=== PATIENT | female | born 1960 | race Caucasian/White ===

== ENCOUNTER 2016-09-08 13:19 | Emergency (ER) | payer OTHER ==
--- NOTE | 2016-09-08 14:49 | DIAGNOSTIC IMAGING REPORT ---
PROCEDURE: CT HEAD WITHOUT CONTRAST INDICATION: HEADACHE TECHNIQUE: Noncontrast axial images with sagittal and coronal reformations. COMPARISON: None. FINDINGS: Brain and ventricles are normal. No evidence of an acute process or hemorrhage. There is moderate mucosal thickening in the left maxillary sinus with fluid level, and marked mucosal thickening in the left anterior ethmoid air cells and left frontal sinus. There is mild mucosal thickening in the right sphenoid sinus, with mild mucosal thickening and fluid in the right maxillary sinus. IMPRESSION: 1. Normal brain and ventricles. 2. Moderate to severe mucosal thickening in the left maxillary sinus, left frontal sinus, and left anterior ethmoid sinuses (suggest obstruction of the ostiomeatal unit). 3. Mild mucosal thickening in the right sphenoid and maxillary sinus with fluid level. 4. Findings are compatible with acute and chronic sinusitis. 5. Findings discussed with Dr. Celestino Alcocer at [address] scans at this facility use dose modulation, iterative reconstruction, and/or weight-based dosing when appropriate to reduce radiation dose to as low as reasonably achievable.
--- NOTE | 2016-09-08 15:19 | ED ORDER SUMMARY ---
..... Patient: SUZY MELENDEZ OrderSheet [facility] VisitID: [id number] [address] [place] [address] 55y, F Registration Date/Time: 09/08/2016 ORDER SHEET Weight: 74.8 kg (stated) Allergies: No Known Drug Allergy GENERAL ORDERS: CT Head wo Cont (double vision) Urgent (14:12 09/08/2016 Juanjo Ca) [facility] 14:[facility] (14:28 [place]) MEDICATION ORDERS: IV FLUIDS: ORDER SHEET NOTES: [Electronically signed by Celestino Alcocer Dr. (15:19 09/08/2016)] [Electronically signed by Jg Camara R.N. (18:03 09/08/2016)] [Electronically locked/signed by Jg Camara R.N. (18:03 09/08/2016)]
--- NOTE | 2016-09-08 15:19 | ED CLINICAL REPORT ---
Clinical Report - Physicians/Mid Levels [facility] [address] [place] [address] 09/08/2016 13:20 Patient: SUZY MELENDEZ Time Seen: 13:29; initial patient contact. Arrived- By private vehicle. Historian- patient. HISTORY OF PRESENT ILLNESS Chief Complaint: HEADACHE. Is still present. This started about 1 1/2 weeks ago. Onset during emotional upset. It is described as sharp. Quality described as unlike previous headaches. Located in the right hemicranial and occipital region and region of the right eye. No neck pain. Not located in the facial region. At its maximum, severity described as moderate. When seen in the E.D., severity described as mild. No preceding symptoms, blurred vision, photophobia, associated nausea or numbness. No weakness or vomiting. Similar symptoms previously: None. Recent medical care: The patient was seen recently in a clinic (Dx'd w/ sinus infection. On Cefuroxime and was on Mobic, but switched to Prednisone yesterday.). REVIEW OF SYSTEMS No fever, ear pain or carbon monoxide exposure. She has had sinus pressure. All systems otherwise negative, except as recorded above. PAST HISTORY Cellulitis. DIC Syndrome. Depression SURGERIES: Cryosurgery of cervix Esophageal surgery. Laparoscopy. Scar tissue removal from fallopian tubes. SOCIAL HISTORY Former smoker. Occasional alcohol use. No drug use. ADDITIONAL NOTES The nursing notes have been reviewed. PHYSICAL EXAM Vital Signs: 09/08/2016 13:23 BP: 138/87. HR: 78. RR: 16. O2 saturation: 98%. Temp: 98.1 F. Pain level now: 3/10. Have been reviewed as normal. Appearance: Alert. No acute distress. Eyes: Pupils equal, round and reactive to light. Eyes normal inspection. No photophobia. ENT: Mild generalized pharyngeal erythema with right tonsillar swelling and left tonsillar swelling. No right tonsillar exudate or left tonsillar exudate. Neck: Normal inspection. No meningeal signs, carotid bruit or lymphadenopathy. CVS: Normal heart rate and rhythm. Heart sounds normal. Respiratory: No respiratory distress. Breath sounds normal. Abdomen: Soft and nontender. No organomegaly. The bowel sounds are not abnormal. Skin: Skin warm and dry. Normal skin color. Neuro: Oriented X 3. Alert. Mood/affect normal. Speech normal. Cranial nerves normal (as tested). No cerebellar findings. No motor deficit. No sensory deficit. Reflex exam: right biceps 2+, left biceps 2+, right brachioradialis 2+ and left brachioradialis 2+. LABS, X-RAYS, AND EKG CT Head: (1. Normal brain and ventricles. 2. Moderate to severe mucosal thickening in the left maxillary sinus, left frontal sinus, and left anterior ethmoid sinuses (suggest obstruction of the ostiomeatal unit). 3. Mild mucosal thickening in the right sphenoid and maxillary sinus with fluid level. 4. Findings are compatible with acute and chronic sinusitis.). Head CT performed without contrast. The study was independently viewed by me, interpreted by the radiologist and discussed with the radiologist. Prior studies were not available for comparison. Interpretation time: 14:57. PROGRESS AND PROCEDURES Disposition: Discharged home in good and improved condition. Condition: good. CLINICAL IMPRESSION Episodic tension-type headache resistant to treatment. Chronic maxillary, ethmoidal and frontal sinusitis INSTRUCTIONS Do not work tomorrow. (Use distilled water only in your Neti pot Afrin OTC nose spray x 2 days). Your Current Medications: CONTINUE TAKING THE FOLLOWING MEDICATIONS: Benadryl prn *. Multivitamins Oral. Venlafaxine HCl ER Oral. Vitamin D Oral. Prescription Medications: Baclofen 10 mg: take 1 orally every 8 hours. Dispense thirty (30). No refills. Follow-up: Follow up with your doctor in about two days. Call for an appointment. Screening today revealed the patient's blood pressure to be in the hypertensive range. The patient should follow up with a primary care provider for blood pressure management. Follow-up with: Tasih Alaniz MD, ENT, , [address], , [place], [id number] Follow up in about two days. Call for an appointment. (Electronically signed by Celestino Alcocer Dr. 09/08/2016 15:19)
--- NOTE | 2016-09-08 15:19 | ED CLINICAL REPORT ---
Clinical Report - Physicians/Mid Levels [facility] [address] [place] [address] 09/08/2016 13:20 Patient: SUZY MELENDEZ Time Seen: 13:29; initial patient contact. Arrived- By private vehicle. Historian- patient. HISTORY OF PRESENT ILLNESS Chief Complaint: HEADACHE. Is still present. This started about 1 1/2 weeks ago. Onset during emotional upset. It is described as sharp. Quality described as unlike previous headaches. Located in the right hemicranial and occipital region and region of the right eye. No neck pain. Not located in the facial region. At its maximum, severity described as moderate. When seen in the E.D., severity described as mild. No preceding symptoms, blurred vision, photophobia, associated nausea or numbness. No weakness or vomiting. Similar symptoms previously: None. Recent medical care: The patient was seen recently in a clinic (Dx'd w/ sinus infection. On Cefuroxime and was on Mobic, but switched to Prednisone yesterday.). REVIEW OF SYSTEMS No fever, ear pain or carbon monoxide exposure. She has had sinus pressure. All systems otherwise negative, except as recorded above. PAST HISTORY Cellulitis. DIC Syndrome. Depression SURGERIES: Cryosurgery of cervix Esophageal surgery. Laparoscopy. Scar tissue removal from fallopian tubes. SOCIAL HISTORY Former smoker. Occasional alcohol use. No drug use. ADDITIONAL NOTES The nursing notes have been reviewed. PHYSICAL EXAM Vital Signs: 09/08/2016 13:23 BP: 138/87. HR: 78. RR: 16. O2 saturation: 98%. Temp: 98.1 F. Pain level now: 3/10. Have been reviewed as normal. Appearance: Alert. No acute distress. Eyes: Pupils equal, round and reactive to light. Eyes normal inspection. No photophobia. ENT: Mild generalized pharyngeal erythema with right tonsillar swelling and left tonsillar swelling. No right tonsillar exudate or left tonsillar exudate. Neck: Normal inspection. No meningeal signs, carotid bruit or lymphadenopathy. CVS: Normal heart rate and rhythm. Heart sounds normal. Respiratory: No respiratory distress. Breath sounds normal. Abdomen: Soft and nontender. No organomegaly. The bowel sounds are not abnormal. Skin: Skin warm and dry. Normal skin color. Neuro: Oriented X 3. Alert. Mood/affect normal. Speech normal. Cranial nerves normal (as tested). No cerebellar findings. No motor deficit. No sensory deficit. Reflex exam: right biceps 2+, left biceps 2+, right brachioradialis 2+ and left brachioradialis 2+. LABS, X-RAYS, AND EKG CT Head: (1. Normal brain and ventricles. 2. Moderate to severe mucosal thickening in the left maxillary sinus, left frontal sinus, and left anterior ethmoid sinuses (suggest obstruction of the ostiomeatal unit). 3. Mild mucosal thickening in the right sphenoid and maxillary sinus with fluid level. 4. Findings are compatible with acute and chronic sinusitis.). Head CT performed without contrast. The study was independently viewed by me, interpreted by the radiologist and discussed with the radiologist. Prior studies were not available for comparison. Interpretation time: 14:57. PROGRESS AND PROCEDURES Disposition: Discharged home in good and improved condition. Condition: good. CLINICAL IMPRESSION Episodic tension-type headache resistant to treatment. Chronic maxillary, ethmoidal and frontal sinusitis INSTRUCTIONS Do not work tomorrow. (Use distilled water only in your Neti pot Afrin OTC nose spray x 2 days). Your Current Medications: CONTINUE TAKING THE FOLLOWING MEDICATIONS: Benadryl prn *. Multivitamins Oral. Venlafaxine HCl ER Oral. Vitamin D Oral. Prescription Medications: Baclofen 10 mg: take 1 orally every 8 hours. Dispense thirty (30). No refills. Follow-up: Follow up with your doctor in about two days. Call for an appointment. Screening today revealed the patient's blood pressure to be in the hypertensive range. The patient should follow up with a primary care provider for blood pressure management. Follow-up with: Tashi Alaniz MD, ENT, , [address], , [place], [id number] Follow up in about two days. Call for an appointment. (Electronically signed by Celestino Alcocer Dr. 09/08/2016 15:19)
--- NOTE | 2016-09-08 15:19 | ED NURSING NOTES ---
Clinical Report - Nurses [facility] [address] [place] [address] 09/08/2016 13:20 Patient: SUZY MELENDEZ TRIAGE Triage time 13:Sep 08 2016. Acuity: LEVEL 4. Alert. No acute distress. SEPSIS SCREEN: Sepsis Screen. Negative (no infection suspected/documented). --13:34 Jg Camara R.N. 13:23 09/08/16. BP: 138/87. HR: 78. RR: 16. O2 saturation: 98% on room air. Temp: 98.1 F. Pain level now: 06/28. --13:34 Jg Camara R.N. Chief Complaint: HEADACHE and (double vision). --15:31 Jg Camara R.N. Weight: 74.8 kg stated. Height/Length: 64 inches Per Patient. BMI: 28.3. --13:23 Jg Camara R.N. Medications Venlafaxine HCl ER Oral. --13:28 Jg Camara R.N. Multivitamins Oral. --13:28 Jg Camara R.N. Vitamin D Oral. --13:28 Jg Camara R.N. Benadryl prn . --13:28 Jg Camara R.N. Allergies No Known Drug Allergy. --13:27 Jg Camara R.N. History Arrived by private vehicle. Historian: patient. Accompanied by family. This started last night. ( Pt has had a sinus headache for roughly 1-2 weeks, she experienced some stabbing pains to the right side of her head. She went in to the clinic and was given some "swelling medicine" and the stabbing pains were relieved. The stabbing pains returned last night, she was awoken by this pain and is reporting double-vision.). She has had sinus pain. No nausea or fever. Treatment [employer]IST: (Excedrin ES). SOCIAL HX: Former smoker. Occasional alcohol use. No drug use. No recent travel. No infectious disease exposure. No known contact with a sick individual. ABUSE ASSESSMENT: Abuse assessment: The patient was asked "Do you feel safe in your home?". No report of abuse. SELF HARM ASSESSMENT: A self harm assessment was performed. The patient answered "yes" to the question "Have you recently felt down, depressed, or hopeless?", "Do you have thoughts of harming or killing yourself?" and "Have you recently had thoughts about harming or killing others?" and "no" to the question "Are you here because you tried to hurt yourself?", "Have you ever tried to hurt yourself before today?" and "Do you have any dangerous items in your possession?". The patient reports their behavior. The ED physician has been notified. FALL RISK ASSESSMENT: Fall risk assessment completed. No fall risk identified. NUTRITIONAL RISK ASSESSMENT: The nutritional risk assessment revealed no deficiencies. FUNCTIONAL ASSESSMENT: Functional assessment: no impairments noted. LEARNING NEEDS ASSESSMENT: The learning needs assessment revealed no barriers. SKIN INTEGRITY ASSESSMENT: Skin integrity risk assessment completed. No skin integrity risk identified. --13:34 Jg Camara R.N. SELF HARM ASSESSMENT: A self harm assessment was performed. Family at bedside. --13:43 Jg Camara R.N. PROBLEMS: Cellulitis. DIC Syndrome. --13:28 Jg Camara R.N. ADDITIONAL SURGERIES: Cryosurgery of cervic. Esophageal surgery. Laparoscopy. Scar tissue removal from fallopian tubes. --13:29 Jg Camara R.N. Interventions ID band on patient. To treatment room. --13:34 Jg Camara R.N. PHYSICAL ASSESSMENT Ambulatory to room. GENERAL / NEURO / PSYCH: Alert. Oriented X 4. Appears in no acute distress. Speech within normal limits. HEENT: Visual acuity with corrective lenses: left eye 20/25; right eye 20/25 (Pt is nearsighted, could not visualize exam board without glasses.). Pupils equal, round and reactive to light. RESPIRATORY: Respirations not labored. SKIN: Skin is warm and dry. --13:40 Jg Camara R.N. NURSING PROGRESS NOTES The plan of care for this patient has been created. Patient gowned. Head of bed elevated. Reassurance given. Lights dimmed. Two patient identifiers checked. Call light placed in reach. Bed placed in lowest position. Patient ready for evaluation- ED physician notified. ( Pt tearful during triage exam when asked if she has recently felt down/depressed, she states that she has thought about hurting herself on and off for the past few years. She reports familial stress and sadness in her life, states that she has thought about how she would hurt herself, by taking pills but reports that she doesn't have any and that she would never actually "do that". Spouse at bedside. Pt cooperative, pleasant, ED MD aware.). --13:42 Jg Camara R.N. ( Pt resting in room, spouse at bedside, Pt already gone to CT, no needs voiced.). --14:50 Jg Camara R.N. 14:50 09/08/16. BP: 141/90. HR: 67. O2 saturation: 97% on room air. Pain level now: 610. --14:50 Jg Camara R.N. DISPOSITION / DISCHARGE Departure time: 15:Sep 08 2016. Condition at departure: stable. No learning barriers present. Discharge instructions provided and reviewed with the patient and spouse. Reviewed warnings (Pt advised not to drive or consume ETOH while taking Baclofen.). Reviewed medication(s) side effects, precautions, dosing and course information. Prescription(s) given to the patient. Reviewed referral to a primary care physician for followup. Work note given (Do not work tomorrow.). Patient and spouse verbalized understanding. Written instructions provided in [place]. The patient was discharged home and accompanied by spouse. She left the Emergency Department ambulatory and via private vehicle. Spouse driving. ( Pt dc'd in stable condition, VSS, ambulatory, Pt reports she feels better, verbalized understanding of DC instructions.). --15:30 Jg Camara R.N. 15:30 09/08/16. BP: deferred. HR: deferred. RR: deferred. O2 saturation: deferred. Temp: deferred. Pain level now deferred. --15:30 Jg Camara R.N. Locked/Released at 09/08/2016 18:03 by Jg Camara R.N.
--- NOTE | 2016-09-08 15:19 | ED ORDER SUMMARY ---
..... Patient: SUZY MELENDEZ OrderSheet [facility] VisitID: [id number] [address] [place] [address] 55y, F Registration Date/Time: 09/08/2016 ORDER SHEET Weight: 74.8 kg (stated) Allergies: No Known Drug Allergy GENERAL ORDERS: CT Head wo Cont (double vision) Urgent (14:12 09/08/2016 Juanjo Ca) ([facility] 14:18 [facility] (14:28 [place]) MEDICATION ORDERS: IV FLUIDS: ORDER SHEET NOTES: [Electronically signed by Celestino Alcocer Dr. (15:19 09/08/2016)] [Electronically signed by Jg Camara R.N. (18:03 09/08/2016)] [Electronically locked/signed by Jg Camara R.N. (18:03 09/08/2016)]
--- NOTE | 2016-09-08 18:03 | ED MED RECONCILIATION SUMMARY ---
Patient: SUZY MELENDEZ Medication Reconciliation Report [facility] VisitID: [id number] [address] [place] [address] 55y, F Registration Date/Time: 09/08/2016 Weight: 74.8 kg Height/Length: 64 in. BMI: 28.3 ALLERGIES: No Known Drug Allergy The patient's Home Medications are listed below: CONTINUE TAKING THE FOLLOWING MEDICATIONS: Benadryl prn Multivitamins Oral Venlafaxine HCl ER Oral Vitamin D Oral The source(s) of the original Home Medication information: Not obtained. The following Medications were given to the patient in the Emergency Department: None. The following Medications were prescribed to the patient: Baclofen 10 mg: take 1 orally every 8 hours. Dispense thirty (30). No refills. -- Celestino Alcocer Dr.
--- NOTE | 2016-09-08 18:03 | ED MED RECONCILIATION SUMMARY ---
Patient: SUZY MELENDEZ Medication Reconciliation Report [facility] VisitID: [id number] [address] [place] [address] 55y, F Registration Date/Time: 09/08/2016 Weight: 74.8 kg Height/Length: 64 in. BMI: 28.3 ALLERGIES: No Known Drug Allergy The patient's Home Medications are listed below: CONTINUE TAKING THE FOLLOWING MEDICATIONS: Benadryl prn Multivitamins Oral Venlafaxine HCl ER Oral Vitamin D Oral The source(s) of the original Home Medication information: Not obtained. The following Medications were given to the patient in the Emergency Department: None. The following Medications were prescribed to the patient: Baclofen 10 mg: take 1 orally every 8 hours. Dispense thirty (30). No refills. -- Celestino Alcocer Dr.
--- NOTE | 2016-09-08 18:03 | ED MAR SUMMARY ---
..... Medication Administration Record [facility] [address], [place] [id number] Patient: SUZY MELENDEZ Visit ID: [id number] 55y, F Weight: 74.8 kg Height/Length: 64 in BMI: 28.3 ALLERGIES: No Known Drug Allergy
--- NOTE | 2016-09-08 18:03 | ED DISCHARGE INSTRUCTIONS ---
Patient: SUZY MELENDEZ General Instructions [facility] VisitID: [id number] [address] [place] [address] 55y, F Registration Date/Time: 09/08/2016 Episodic tension-type headache resistant to treatment. Chronic maxillary, ethmoidal and frontal sinusitis INSTRUCTIONS Do not work tomorrow. (Use distilled water only in your Neti pot Afrin OTC nose spray x 2 days). Your Current Medications: CONTINUE TAKING THE FOLLOWING MEDICATIONS: Benadryl prn *. Multivitamins Oral. Venlafaxine HCl ER Oral. Vitamin D Oral. Prescription Medications: Baclofen 10 mg: take 1 orally every 8 hours. Dispense thirty (30). No refills. Follow-up: Follow up with your doctor in about two days. Call for an appointment. Screening today revealed the patient's blood pressure to be in the hypertensive range. The patient should follow up with a primary care provider for blood pressure management. Follow-up with: Tashi Alaniz MD, ENT, , [address] , [place], [id number] Follow up in about two days. Call for an appointment. ADDITIONAL INFORMATION Tension Headache Muscle Tension Headache (also called "stress headache") is a very common cause of head pain. Under stress, some people tense the muscles of their shoulder, neck and scalp without knowing it. If this lasts long enough, a headache can occur. These headaches can be very painful and last for hours or even days. Home Care: If you were given pain medicine for this headache, do not drive yourself home. Arrange for a ride, instead. When you get home, try to sleep. You should feel much better when you wake up. Heat to the back of your neck may relieve neck spasm. Drink only clear liquids or eat a very light diet to avoid nausea/vomiting until symptoms improve. Preventing Future Headaches Identify the sources of stress in your life. These may not be obvious! Learn new ways to handle your stress, such as regular exercise, biofeedback, self-hypnosis and meditation. For more information about this, consult your doctor or go to a local bookstore and review the many books and tapes on this subject. At the first sign of a tension headache, take time out if possible. Remove yourself from the stressful situation, find a quiet comfortable place to sit or lie down and let yourself relax. Heat and deep massage of the tight areas in the neck and shoulders may help reduce muscle spasm. Medicine, such as ibuprofen (Advil or Motrin) or a prescribed muscle relaxant may be helpful at this point. Follow Up with your doctor if the headache is not better within the next 24 hours. If you have frequent headaches you should discuss a treatment plan with your primary care doctor. Ask if you can have medicine to take at home the next time you get a bad headache. This may avoid the need for a visit to the emergency department in the future. Poorly controlled chronic headaches may require a referral to a neurologist (headache specialist). Get Prompt Medical Attention if any of the following occur: Worsening of your head pain or no improvement within 24 hours Repeated vomiting (unable to keep liquids down) Fever of 100.4F (38C) or higher, or as directed by your healthcare provider Stiff neck Extreme drowsiness, confusion or fainting Dizziness, vertigo (dizziness with spinning sensation) Weakness of an arm or leg or one side of the face Difficulty with speech or vision Sinusitis [Abx Tx] The sinuses are air-filled spaces within the bones of the face. They connect to the inside of the nose. Sinusitis is an inflammation of the tissue lining the sinus cavity. Sinus inflammation can occur during a cold or hay-fever (allergies to pollens and other particles in the air) and cause symptoms of sinus congestion and fullness. A sinus infection causes fever, headache and facial pain. There is usually green or yellow drainage from the nose or into the back of the throat (post-nasal drip). Antibiotics are prescribed to treat this condition. Home Care: Drink plenty of water, hot tea, and other liquids to stay well hydrated. This thins the mucus and promotes sinus drainage. Apply heat to the painful areas of the face. Use a towel soaked in hot water. Or, machine fitter the shower and direct the hot spray onto your face. This is a good way to inhale warm water vapor and get heat on your face at the same time. (Cover your mouth and nose with your hands so you can still breathe as you do this.) Use a vaporizer with products such as [employer] (contains menthol) at night. Suck on peppermint, menthol or eucalyptus hard candies during the day. An expectorant containing guaifenesin (such as Robitussin), helps to thin the mucus and promote drainage from the sinuses. Hxzb-kyz-lkttfhk decongestants may be used unless a similar medicine was prescribed. Nasal sprays work the fastest. Use one that contains phenylephrine (Ezequiel-synephrine, Sinex and others) or oxymetazoline (Afrin). First blow the nose gently to remove mucus, then apply the drops. Do not use these medicines more often than directed on the label or for more than three days or symptoms may worsen. You may also use tablets containing pseudoephedrine (Sudafed). Many sinus remedies combine ingredients, which may increase side effects. Read the labels or ask the pharmacist for help. NOTE: Persons with high blood pressure should not use decongestants. They can raise blood pressure. Antihistamines are useful if allergies are a cause of your sinusitis. The mildest one is chlorpheniramine (available without a prescription). The dose for adults is 8-12mg three times a day. [NOTE: Do not use chlorpheniramine if you have glaucoma or if you are a man with trouble urinating due to an enlarged prostate.] Claritin (loratidine) is an antihistamine that causes less drowsiness and is a good alternative for daytime use. Do not use nasal rinses or irrigation during an acute sinus infection, unless advised by your doctor. Rinsing may spread the infection to other sinuses. You may use acetaminophen (Tylenol) or ibuprofen (Motrin, Advil) to control pain, unless another pain medicine was prescribed. [ NOTE: If you have chronic liver or kidney disease or ever had a stomach ulcer, talk with your doctor before using these medicines.] (Aspirin should never be used in anyone under 18 years of age who is ill with a fever. It may cause severe liver damage.) Finish the full course, even if you are feeling better after a few days. Follow Up with your doctor or this facility in one week or as instructed by our staff if not improving. Get Prompt Medical Attention if any of the following occur: Facial pain or headache becomes more severe Stiff neck Unusual drowsiness or confusion, or not acting like your normal self Swelling of the forehead or eyelids Vision problems including blurred or double vision Fever of 100.4F (38C) or higher, or as directed by your healthcare provider Seizure You have been given the following additional information: Headache, Tension Sinusitis, Abx Tx Do not work tomorrow. (Electronically signed by Celestino Alcocer Dr. 09/08/2016 15:19)
--- NOTE | 2016-09-08 18:03 | ED MAR SUMMARY ---
..... Medication Administration Record [facility] [address] [place], [place] [id number] Patient: SUZY MELENDEZ Visit ID: [id number] 55y, F Weight: 74.8 kg Height/Length: 64 in BMI: 28.3 ALLERGIES: No Known Drug Allergy
== END 2016-09-08 15:30 | disposition home or self-care (01) ==
LOC: ED SRH 13:19
DX: G44.211 Episodic tension-type headache, intractable (principal); J32.0 Chronic maxillary sinusitis; J32.2 Chronic ethmoidal sinusitis; J32.1 Chronic frontal sinusitis; Z87.891 Personal history of nicotine dependence; Z79.899 Other long term (current) drug therapy

== ENCOUNTER 2016-09-09 13:00 | Emergency (ER) | payer OTHER ==
--- NOTE | 2016-09-09 15:44 | ED NURSING NOTES ---
Clinical Report - Nurses [facility] [address] [place] [address] 09/09/2016 13:00 Patient: SUZY MELENDEZ TRIAGE Triage time 13:36 Sep 09 2016. Acuity: LEVEL 3. Chief Complaint: HEADACHE. Alert. No acute distress. SEPSIS SCREEN: Sepsis Screen. Negative (no infection suspected/documented). NICOLE COMA SCORE: Nicole Coma Scale: 15- eyes open spontaneously (4); best verbal response- oriented x 4 (5); best motor response- obeys commands (6). --13:44 Bailey Dow R.N. 13:36 09/09/16. BP: 138/101. HR: 75. RR: 16. O2 saturation: 100%. Temp: 98.5 F. Pain level now: 12/29. --13:44 Bailey Dow R.N. Weight: 72.5 kg stated. Height/Length: 64 inches Per Patient. BMI: 27.5. --13:43 Bailey Dow R.N. Medications Venlafaxine HCl Oral. --13:39 Bailey Dow R.N. MethylPREDNISolone Oral. --13:39 Bailey Dow R.N. Nexafed Oral. --13:39 Bailey Dow R.N. Cefuroxime Axetil Oral. --13:40 Bailey Dow R.N. Meloxicam Oral. --13:40 Bailey Dow R.N. Baclofen External. --13:40 Bailey Dow R.N. Motrin PM Oral. --13:40 Bailey Dow R.N. Motrin Oral. --13:40 Bailey Dow R.N. Multivitamins Oral. Vitamin D Oral. --13:41 Bailey Dow R.N. Afrin. --13:44 Bailey Dow R.N. Flonase Nasal. --13:44 Bailey Dow R.N. Allergies No Known Drug Allergy. --13:41 Bailey Dow R.N. History Arrived by private vehicle. Historian: patient. Accompanied by family. This started thusday. She has had nausea and sinus pain. 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 Seen within the last 30 days in a medical facility; CT done; labs done; treatment- antibiotic, steroid and other medication. SOCIAL HX: Smoker- current status unknown. Occasional alcohol use. No drug use. No recent travel. No infectious disease exposure. No known contact with a sick individual. SELF HARM ASSESSMENT: A self harm assessment was performed. The patient answered "no" to the question "Do you have thoughts of harming or killing yourself?". ABUSE ASSESSMENT: Abuse assessment: The patient was asked "Do you feel safe in your home?". --13:44 Bailey Dow R.N. ( pt states that she has headache with some vision changes since . She has been seen at the clinic twice and ER last night since then.). --13:45 Bailey Dow R.N. PROBLEMS: Sinusitis. Tension-Type Headache. Cellulitis. LNMP - Last Normal Menstrual Period. Immunizations. DIC Syndrome. --13:41 Bailey Dow R.N. ADDITIONAL SURGERIES: Cryosurgery of cervic. Esophageal surgery. Laparoscopy. Scar tissue removal from fallopian tubes. --13:41 Bailey Dow R.N. Interventions ID band on patient. To room. --13:44 Bailey Dow R.N. PHYSICAL ASSESSMENT GENERAL / NEURO / PSYCH: Oriented X 4. Appears in pain. Speech within normal limits. HEENT: No facial asymmetry noted. RESPIRATORY: Respirations not labored. CVS: Capillary refill less than 2 seconds. GI / : Abdomen soft and nontender. SKIN: Skin is warm and dry. --13:46 Bailey Dow R.N. NURSING PROGRESS NOTES Patient gowned. Head of bed elevated. Lights dimmed. Patient identifiers checked. Call light placed in reach. Side rails up x 1. Bed placed in lowest position. Brakes of bed on. --13:45 Bailey Dow R.N. 14:24 09/09/2016 Site #1 started via IV in the right antecubital space with an 20g angiocath, with aseptic technique and good blood return; one attempt. Saline lock flushed with 10 mL saline. --14:24 Bailey Dow R.N. 14:25 09/09/2016 Started bag #1 1000 mL IV Fluids IV NS (Saline); bolus of 1000 mL over 1 hour(s) via site #1. Allergies verified and confirmed 5 rights. IV patency established. IV site checked: no pain, redness, or swelling. IV flushed thoroughly pre- and post-medication administration. --14:25 Bailey Dow R.N. 14:25 09/09/2016 Toradol IVP 30 mg given over 2 minute(s) via site #1. Allergies verified and confirmed 5 rights. IV patency established. IV site checked: no pain, redness, or swelling. IV flushed thoroughly pre- and post-medication administration. --14:25 Bailey Dow R.N. 14:27 09/09/2016 PHENERGAN (Promethazine HCl) IVP 25 mg given over 2 minute(s) via site #1. Allergies verified and confirmed 5 rights. IV patency established. IV site checked: no pain, redness, or swelling. IV flushed thoroughly pre- and post-medication administration. IVP given by RN. --14:28 Bailey Dow R.N. 14:29 09/09/2016 Benadryl (DiphenhydrAMINE HCl) IVP 25 mg given over 2 minute(s) via site #1. Allergies verified, confirmed 5 rights and sedative warning given to the patient. IV patency established. IV site checked: no pain, redness, or swelling. IV flushed thoroughly pre- and post-medication administration. IVP given by RN. --14:29 Bailey Dow R.N. 14:36 09/09/2016 Started 10 mg of Decadron IVPB; bolus of 10 mg over 5 minute(s) via site #1; Allergies verified and confirmed 5 rights. IV patency established. IV site checked: no pain, redness, or swelling. IV flushed thoroughly pre- and post-medication administration. --14:36 Bailey Dow R.N. 15:00 09/09/16. BP: 140/95. HR: 84. RR: 16. O2 saturation: 100% on room air. --15:12 Robin Garcia R.N. 15:13 09/09/2016 Benadryl (DiphenhydrAMINE HCl) IVP 25 mg given over 2 minute(s) via site #1. Allergies verified, confirmed 5 rights and sedative warning given. IV patency established. IV site checked: no pain, redness, or swelling. IV flushed thoroughly pre- and post-medication administration. IVP given by RN. --15:13 Guero Mcintyre R.N. 15:36 09/09/16. BP: 127/108. HR: 84. RR: 12. O2 saturation: 99%. Pain level now: 04/30. --15:37 Bailey Dow R.N. The patient is calm and resting quietly. Overall patient status is improved- she states feels better. GENERAL / NEURO / PSYCH: The patient reports headache is still present but improving. Denies nausea. Alert. Oriented X 4. RESPIRATORY: No respiratory distress. SKIN: Skin is warm and dry. --15:38 Bailey Dow R.N. DISPOSITION / DISCHARGE Departure time: 16:19 Sep 09 2016. Condition at departure: unchanged. No learning barriers present. Discharge instructions provided and reviewed with the patient. Reviewed medication(s) side effects, precautions, dosing and course information. Prescription(s) given to the patient. Reviewed referral to a primary care physician for followup. Patient verbalized understanding. Written instructions provided in Serbian. The patient was discharged home and accompanied by spouse. She left the Emergency Department ambulatory and via private vehicle. Spouse driving. FALL RISK ASSESSMENT: Fall risk assessment completed. No fall risk identified. --16:20 Bailey Dow R.N. 16:12 09/09/16. BP: 155/111. HR: 88. RR: 12. O2 saturation: 98%. Pain level now: 04/30. --16:20 Bailey Dow R.N. Locked/Released at 09/09/2016 22:45 by Bailey Dow R.N.
--- NOTE | 2016-09-09 15:44 | ED CLINICAL REPORT ---
Clinical Report - Physicians/Mid Levels [facility] [address] [place] [address] 09/09/2016 13:00 Patient: SUZY MELENDEZ Time Seen: 1401. Arrived- By private vehicle. Historian- patient. HISTORY OF PRESENT ILLNESS Is still present and worsening. Chief Complaint: HEADACHE. This started past few days. It was gradual in onset and has been constant and waxing/waning but is not gone now. Patient was last known well (few days ago). Onset during rest. It is described as sharp. Located in the right hemicranial region. No neck pain. Not located in the facial region. At its maximum, severity described as severe. When seen in the E.D., severity described as severe. Modifying factors: worsened by bright light; relieved by closing eyes and dark room. The patient has had nausea. No blurred vision, photophobia, numbness, weakness or vomiting. No recent travel. Recent medical care: The patient was seen recently in the emergency department (reports sinus infection). REVIEW OF SYSTEMS No fever, sinus pressure, chest pain, difficulty breathing or cough. No abdominal pain, diarrhea or pain with urination. All systems otherwise negative, except as recorded above. PAST HISTORY See nurses notes. Medications: Flonase Nasal. Afrin. Multivitamins Oral. Vitamin D Oral. Motrin Oral. Motrin PM Oral. Baclofen External. Meloxicam Oral. Cefuroxime Axetil Oral. Nexafed Oral. MethylPREDNISolone Oral. Venlafaxine HCl Oral. Allergies: No Known Drug Allergy. SOCIAL HISTORY Never smoker. No alcohol use or drug use. No recent travel. Is a local resident. ADDITIONAL NOTES The nursing notes have been reviewed. PHYSICAL EXAM Vital Signs: 09/09/2016 13:36 BP: 138/101. HR: 75. RR: 16. O2 saturation: 100%. Temp: 98.5 F. Pain level now: 9/10. Oxygen saturation normal. Appearance: Alert. Patient in mild distress. (non-toxic appearance. cooperative. pleasant.). Head: No tenderness to palpation/percussion over the sinuses or temporal artery tenderness. Eyes: Pupils equal, round and reactive to light. Eyes normal inspection. No photophobia. (no papilledema. normal retinal vasculature.). ENT: Ears normal. Nose normal. Pharynx normal. Neck: Normal inspection. Neck supple. No meningeal signs or lymphadenopathy. ( negative Kernigs. Negative brudzinski's). CVS: Normal heart rate and rhythm. Heart sounds normal. Pulses normal. Respiratory: No respiratory distress. Breath sounds normal. Abdomen: Soft and nontender. No organomegaly. Skin: Skin warm and dry. Normal skin color. No rash. Normal skin turgor. Extremities: Extremities exhibit normal ROM. No lower extremity edema. Neuro: Oriented X 3. Alert. Mood/affect normal. Cranial nerves normal (as tested). No cerebellar findings. No motor deficit. No sensory deficit. Reflexes normal. PROGRESS AND PROCEDURES Course of Care: Patient is a pleasant presenting for evaluation of headache. Patient as been evaluated for SAH, increased ICP, meningitis, and space occupying lesion. Patients exam and history are not consistent with these entities. Patient is agreeable to treatment for headache. Medications have been ordered after reviewing allergies and intolerances. Patient will be reevaluated after the medications have been given. Patient was reevaluated and found to be significantly improved. Patient reports being able to return home and follow up with doctor. Repeat examination continues to be benign. I discussed with the patient workup, diagnosis, home care, follow-up, and return precautions. All questions have been answered. The patient expressed understanding of these instructions and was agreeable to them. Do not feel patient needs to be admitted to the hospital or require further ED workup/evaluation. Disposition: Discharged. Condition: good. CLINICAL IMPRESSION Acute headache (right sided). 09/09/2016 15:36 BP: 127/108. HR: 84. RR: 12. O2 saturation: 99%. Pain level now: 04/30. Hypertensive. Oxygen saturation normal. Hypertension. INSTRUCTIONS Warnings: GENERAL WARNINGS: Return or contact your physician immediately if your condition worsens or changes unexpectedly, if not improving as expected, or if other problems arise. SPECIFICALLY, return if you develop fever, vomiting, numbness, weakness, difficulty thinking, visual disturbances, fainting or extreme fatigue. Your Current Medications: CONTINUE TAKING THE FOLLOWING MEDICATIONS: Afrin*. Baclofen External. Cefuroxime Axetil Oral. Flonase Nasal. Meloxicam Oral. MethylPREDNISolone Oral. Motrin Oral. Motrin PM Oral. Multivitamins Oral. Nexafed Oral. Venlafaxine HCl Oral. Vitamin D Oral. Prescription Medications: Zofran (orally disintegrating tablets) 4 mg: take 1 orally. Dispense ten (10). No refill. Substitution is permissible. Follow-up: Return to the emergency department as needed. Follow up with your doctor in three days. Reason for referral: recheck today's concerns. Summary of care provided to patient via paper. Screening today revealed the patient's blood pressure to be in the hypertensive range. The patient should follow up with a primary care provider for blood pressure management. Understanding of the discharge instructions verbalized by patient. (Electronically signed by Kobe Ramos Dr. 09/14/2016 8:07)
--- NOTE | 2016-09-09 15:44 | ED ORDER SUMMARY ---
..... Patient: SUZY MELENDEZ OrderSheet [facility] VisitID: [id number] [address] [place] [address] 55y, F Registration Date/Time: 09/09/2016 ORDER SHEET Weight: 72.5 kg (stated) Allergies: No Known Drug Allergy GENERAL ORDERS: MEDICATION ORDERS: Phenergan IV 25 mg (HIGH ALERT MEDICATION, NOW) (14:09/09/2016 Perez Ca) (14:28 REYNALDOnejeaneth R.N.) IV FLUIDS: IV NS : initial bolus 1000 mL (1000 mL/hr), then none - for X1 (NOW) (14:09/09/2016 Perez Ca) (14:25 REYNALDOnejeaneth R.N.) Benadryl IV 25 mg (NOW) (14:09/09/2016 Perez Ca) (14:29 Matty R.N.) Toradol IV 30 mg (NOW) (14:09/09/2016 Perez Ca) (14:25 REYNALDOnejeaneth R.N.) Decadron IV 10 mg (NOW) (14:09/09/2016 Perez Ca) (14:36 REYNALDOnebel R.N.) Benadryl IV 25 mg (NOW) (15:09 09/09/2016 Perez Ca) (Ack 15:10 JBoardley R.N.) (15:13 JBoardley R.N.) ORDER SHEET NOTES: [Electronically signed by Bailey Dow R.N. (22:45 09/09/2016)] [Electronically signed by Kobe Ramos Dr. (08:07 09/14/2016)] [Electronically locked/signed by Bailey Dow R.N. (22:45 09/09/2016)]
--- NOTE | 2016-09-09 15:44 | ED ORDER SUMMARY ---
..... Patient: SUZY MELENDEZ OrderSheet [facility] VisitID: [id number] [address] [place] [address] 55y, F Registration Date/Time: 09/09/2016 ORDER SHEET Weight: 72.5 kg (stated) Allergies: No Known Drug Allergy GENERAL ORDERS: MEDICATION ORDERS: Phenergan IV 25 mg (HIGH ALERT MEDICATION, NOW) (14:09/09/2016 Perez Ca) (14:28 REYNALDOnejeaneth R.N.) IV FLUIDS: IV NS : initial bolus 1000 mL (1000 mL/hr), then none - for X1 (NOW) (14:09/09/2016 Perez Ca) (14:25 REYNALDOnejeaneth R.N.) Benadryl IV 25 mg (NOW) (14:09/09/2016 Perez Ca) (14:29 Matty R.N.) Toradol IV 30 mg (NOW) (14:09/09/2016 Perez Ca) (14:25 REYNALDOnejeaneth R.N.) Decadron IV 10 mg (NOW) (14:09/09/2016 Perez Ca) (14:36 REYNALDOnebel R.N.) Benadryl IV 25 mg (NOW) (15:09 09/09/2016 Perez Ca) (Ack 15:10 JBoardley R.N.) (15:13 JBoardley R.N.) ORDER SHEET NOTES: [Electronically signed by Bailey Dow R.N. (22:45 09/09/2016)] [Electronically signed by Kobe Ramos Dr. (08:07 09/14/2016)] [Electronically locked/signed by Bailey Dow R.N. (22:45 09/09/2016)]
--- NOTE | 2016-09-14 08:08 | ED MAR SUMMARY ---
..... Medication Administration Record [facility] [address] [place] [address] Patient: SUZY MELENDEZ Visit ID: [id number] 55y, F Weight: 72.5 kg Height/Length: 64 in BMI: 27.5 ALLERGIES: No Known Drug Allergy Start 14:09/09/2016 Bailey Dow R.N. Medication Administered: IV NS (SALINE), Dose: IV Fluids, Bolus: 1000 mL over 1 hour(s), Dispensed: 1000 mL bag, Site: #1 right AC. Medication Ordered: IV NS : initial bolus 1000 mL (1000 mL/hr), then none - for X1 (NOW). Given 14:09/09/2016 Bailey Dow R.N. Medication Administered: TORADOL [IVP], Dose: 30 mg IVP over 2 minute(s), Site: #1 right AC. Medication Ordered: Toradol IV 30 mg (NOW). Given 14:09/09/2016 Bailey Dow R.N. Medication Administered: PHENERGAN [IVP] (PROMETHAZINE HCL), Dose: 25 mg IVP over 2 minute(s), Site: #1 right AC. Medication Ordered: Phenergan IV 25 mg (HIGH ALERT MEDICATION, NOW). Given 14:09/09/2016 Bailey Dow R.N. Medication Administered: BENADRYL [IVP] (DIPHENHYDRAMINE HCL), Dose: 25 mg IVP over 2 minute(s), Site: #1 right AC. Medication Ordered: Benadryl IV 25 mg (NOW). Start 14:36 09/09/2016 Bailey Dow R.N. Medication Administered: DECADRON [IVPB], Dose: 10 mg IVPB, Bolus: 10 mg over 5 minute(s), Site: #1 right AC. Medication Ordered: Decadron IV 10 mg (NOW). Given 15:13 09/09/2016 Guero Mcintyre RSusiNSusi Medication Administered: BENADRYL [IVP] (DIPHENHYDRAMINE HCL), Dose: 25 mg IVP over 2 minute(s), Site: #1 right AC. Medication Ordered: Benadryl IV 25 mg (NOW).
--- NOTE | 2016-09-14 08:08 | ED MED RECONCILIATION SUMMARY ---
Patient: SUZY MELENDEZ Medication Reconciliation Report [facility] VisitID: [id number] [address] [place] [address] 55y, F Registration Date/Time: 09/09/2016 Weight: 72.5 kg Height/Length: 64 in. BMI: 27.5 ALLERGIES: No Known Drug Allergy The patient's Home Medications are listed below: CONTINUE TAKING THE FOLLOWING MEDICATIONS: Afrin Baclofen External Cefuroxime Axetil Oral Flonase Nasal Meloxicam Oral MethylPREDNISolone Oral Motrin Oral Motrin PM Oral Multivitamins Oral Nexafed Oral Venlafaxine HCl Oral Vitamin D Oral The source(s) of the original Home Medication information: Not obtained. The following Medications were given to the patient in the Emergency Department: IV NS IV Fluids bolus 1000 mL over 1 hour(s), administered: 09/09/2016 2:25:00 PM Toradol [IVP] IVP 30 mg, administered: 09/09/2016 2:25:00 PM PHENERGAN [IVP] IVP 25 mg, administered: 09/09/2016 2:27:00 PM Benadryl [IVP] IVP 25 mg, administered: 09/09/2016 2:29:00 PM Decadron [IVPB] IVPB bolus 10 mg over 5 minute(s), then 10 mg, administered: 09/09/2016 2:36:00 PM Benadryl [IVP] IVP 25 mg, administered: 09/09/2016 3:13:00 PM The following Medications were prescribed to the patient: Zofran (orally disintegrating tablets) 4 mg: take 1 orally. Dispense ten (10). No refill. Substitution is permissible. -- Kobe Ramos Dr.
--- NOTE | 2016-09-14 08:08 | ED MAR SUMMARY ---
..... Medication Administration Record [facility] [address] [place] [address] Patient: SUZY MELENDEZ Visit ID: [id number] 55y, F Weight: 72.5 kg Height/Length: 64 in BMI: 27.5 ALLERGIES: No Known Drug Allergy Start 14:09/09/2016 Bailey Dow R.N. Medication Administered: IV NS (SALINE), Dose: IV Fluids, Bolus: 1000 mL over 1 hour(s), Dispensed: 1000 mL bag, Site: #1 right AC. Medication Ordered: IV NS : initial bolus 1000 mL (1000 mL/hr), then none - for X1 (NOW). Given 14:09/09/2016 Bailey Dow R.N. Medication Administered: TORADOL [IVP], Dose: 30 mg IVP over 2 minute(s), Site: #1 right AC. Medication Ordered: Toradol IV 30 mg (NOW). Given 14:09/09/2016 Bailey Dow R.N. Medication Administered: PHENERGAN [IVP] (PROMETHAZINE HCL), Dose: 25 mg IVP over 2 minute(s), Site: #1 right AC. Medication Ordered: Phenergan IV 25 mg (HIGH ALERT MEDICATION, NOW). Given 14:09/09/2016 Bailey Dow R.N. Medication Administered: BENADRYL [IVP] (DIPHENHYDRAMINE HCL), Dose: 25 mg IVP over 2 minute(s), Site: #1 right AC. Medication Ordered: Benadryl IV 25 mg (NOW). Start 14:36 09/09/2016 Bailey Dow R.N. Medication Administered: DECADRON [IVPB], Dose: 10 mg IVPB, Bolus: 10 mg over 5 minute(s), Site: #1 right AC. Medication Ordered: Decadron IV 10 mg (NOW). Given 15:13 09/09/2016 Guero Mcintyre RSusiNSusi Medication Administered: BENADRYL [IVP] (DIPHENHYDRAMINE HCL), Dose: 25 mg IVP over 2 minute(s), Site: #1 right AC. Medication Ordered: Benadryl IV 25 mg (NOW).
--- NOTE | 2016-09-14 08:08 | ED MED RECONCILIATION SUMMARY ---
Patient: SUZY MELENDEZ Medication Reconciliation Report [facility] VisitID: [id number] [address] [place] [address] 55y, F Registration Date/Time: 09/09/2016 Weight: 72.5 kg Height/Length: 64 in. BMI: 27.5 ALLERGIES: No Known Drug Allergy The patient's Home Medications are listed below: CONTINUE TAKING THE FOLLOWING MEDICATIONS: Afrin Baclofen External Cefuroxime Axetil Oral Flonase Nasal Meloxicam Oral MethylPREDNISolone Oral Motrin Oral Motrin PM Oral Multivitamins Oral Nexafed Oral Venlafaxine HCl Oral Vitamin D Oral The source(s) of the original Home Medication information: Not obtained. The following Medications were given to the patient in the Emergency Department: IV NS IV Fluids bolus 1000 mL over 1 hour(s), administered: 09/09/2016 2:25:00 PM Toradol [IVP] IVP 30 mg, administered: 09/09/2016 2:25:00 PM PHENERGAN [IVP] IVP 25 mg, administered: 09/09/2016 2:27:00 PM Benadryl [IVP] IVP 25 mg, administered: 09/09/2016 2:29:00 PM Decadron [IVPB] IVPB bolus 10 mg over 5 minute(s), then 10 mg, administered: 09/09/2016 2:36:00 PM Benadryl [IVP] IVP 25 mg, administered: 09/09/2016 3:13:00 PM The following Medications were prescribed to the patient: Zofran (orally disintegrating tablets) 4 mg: take 1 orally. Dispense ten (10). No refill. Substitution is permissible. -- Kobe Ramos Dr.
--- NOTE | 2016-09-14 08:08 | ED DISCHARGE INSTRUCTIONS ---
Patient: SUZY MELENDEZ General Instructions [facility] VisitID: [id number] [address] [place] [address] 55y, F Registration Date/Time: 09/09/2016 Acute headache (right sided). 09/09/2016 15:36 BP: 127/108. HR: 84. RR: 12. O2 saturation: 99%. Pain level now: 04/30. Hypertensive. Oxygen saturation normal. Hypertension. INSTRUCTIONS Warnings: GENERAL WARNINGS: Return or contact your physician immediately if your condition worsens or changes unexpectedly, if not improving as expected, or if other problems arise. SPECIFICALLY, return if you develop fever, vomiting, numbness, weakness, difficulty thinking, visual disturbances, fainting or extreme fatigue. Your Current Medications: CONTINUE TAKING THE FOLLOWING MEDICATIONS: Afrin*. Baclofen External. Cefuroxime Axetil Oral. Flonase Nasal. Meloxicam Oral. MethylPREDNISolone Oral. Motrin Oral. Motrin PM Oral. Multivitamins Oral. Nexafed Oral. Venlafaxine HCl Oral. Vitamin D Oral. Prescription Medications: Zofran (orally disintegrating tablets) 4 mg: take 1 orally. Dispense ten (10). No refill. Substitution is permissible. Follow-up: Return to the emergency department as needed. Follow up with your doctor in three days. Reason for referral: recheck today's concerns. Summary of care provided to patient via paper. Screening today revealed the patient's blood pressure to be in the hypertensive range. The patient should follow up with a primary care provider for blood pressure management. Understanding of the discharge instructions verbalized by patient. ADDITIONAL INFORMATION Headache [Unspecified] The cause of your headache today is not clear, but it does not appear to be the sign of any serious illness. Under stress, some people tense the muscles of their shoulder, neck and scalp without knowing it. If this condition lasts long enough, a TENSION HEADACHE can occur. A MIGRAINE HEADACHE is caused by changes in blood flow to the brain. A migraine attack may be triggered by emotional stress, hormone changes during the menstrual cycle, oral contraceptives, alcohol use, certain foods containing tyramine, eye strain, weather changes, missing meals, lack of sleep or oversleeping. Other causes of headache include a viral illness with high fever, head injury with concussion, sinus, ear or throat infection, dental pain and TMJ (jaw joint) pain. More serious but less common causes of headache include stroke, brain hemorrhage, brain tumor, meningitis and encephalitis. Home Care: If you were given pain medicine for this headache, do not drive yourself home. Arrange for a ride, instead. When you get home, try to sleep. You should feel much better when you wake up. Apply heat to the back of your neck to relieve neck muscle spasm. Migraine headaches may respond best to an ice pack on the forehead or at the base of the skull. If you are having nausea or vomiting, follow a light diet until your headache is relieved. If you have a migraine type headache, use sunglasses when in the daylight or around bright indoor lighting until symptoms improve. Bright glaring light can worsen this kind of headache. Follow Up with your doctor if the headache is not better within the next 24 hours. If you have frequent headaches you should discuss a treatment plan with your primary care doctor. By being aware of the earliest signs of headache, and starting treatment right away, you may be able to stop the pain yourself. Get Prompt Medical Attention if any of the following occur: Worsening of your head pain or no improvement within 24 hours Repeated vomiting (unable to keep liquids down) Fever of 100.4F (38C) or higher, or as directed by your healthcare provider Stiff neck Extreme drowsiness, confusion or fainting Dizziness, vertigo (dizziness with spinning sensation) Weakness of an arm or leg or one side of the face Difficulty with speech or vision High Blood Pressure -- To Be Confirmed [No Tx] Your blood pressure was higher today than normal. Sometimes anxiety or pain can cause a temporary rise in blood pressure that later returns to normal. If your blood pressure is high on one measurement, this does not mean that you have hypertension (a chronic illness). However, you must have your blood pressure measured again within the next few days to find out if its still high. A normal blood pressure is 120/80 or less. The first (top) number is the "systolic" pressure. The second (bottom) number is the "diastolic" pressure. Hypertension exists when either the top number is 140 or higher, OR the bottom number is 90 or higher on repeated measurements. Blood pressure in the range of 120-140 (systolic) or 80-89 (diastolic) is considered "pre-hypertension". This means your are at risk for getting hypertension. You should have regular blood pressure checks to be sure your blood pressure is not rising. Home Care: Measure your blood pressure on 3 different days and write down the results. This can be done at your doctor's office or this facility. Some pharmacies and grocery stores offer automated blood pressure machines for your use. Follow Up: If your blood pressure is "high" (over 120/80) on 2 out of 3 days, you will need to follow up with your doctor for further evaluation and treatment. DO NOT PUT THIS OFF! Untreated high blood pressure increases the risk for heart attack, also known as acute myocardial infarction, or AMI, and stroke. It is a treatable condition. Get Prompt Medical Attention if any of the following occur: Chest pain or shortness of breath Severe headache Throbbing or rushing sound in the ears Nosebleed Sudden severe abdominal pain Extreme drowsiness, confusion or fainting Dizziness or vertigo (dizziness with spinning sensation) Weakness of an arm or leg or one side of the face Difficulty with speech or vision Ondansetron Oral disintegrating tablet What is this medicine? ONDANSETRON (on WEN se temi) is used to treat nausea and vomiting caused by chemotherapy. It is also used to prevent or treat nausea and vomiting after surgery. How should I use this medicine? These tablets are made to dissolve in the mouth. Do not try to push the tablet through the foil backing. With dry hands, peel away the foil backing and gently remove the tablet. Place the tablet in the mouth and allow it to dissolve, then swallow. While you may take these tablets with water, it is not necessary to do so. Talk to your floor sanding machine operator regarding the use of this medicine in children. Special care may be needed. What side effects may I notice from receiving this medicine? Side effects that you should report to your doctor or health primary care pediatrician as soon as possible: allergic reactions like skin rash, itching or hives, swelling of the face, lips, or tongue breathing problems dizziness fast or irregular heartbeat feeling faint or lightheaded, falls fever and chills swelling of the hands and feet tightness in the chest Side effects that usually do not require medical attention (report to your doctor or health primary care pediatrician if they continue or are bothersome): constipation or diarrhea headache What may interact with this medicine? Do not take this medicine with any of the following medications: -apomorphine -cisapride -dofetilide -dronedarone -pimozide -thioridazine -ziprasidone This medicine may also interact with the following medications: -carbamazepine -phenytoin -rifampicin -tramadol -other medicines that prolong the QT interval (cause an abnormal heart rhythm) What if I miss a dose? If you miss a dose, take it as soon as you can. If it is almost time for your next dose, take only that dose. Do not take double or extra doses. Where should I keep my medicine? Keep out of the reach of children. Store between 2 and 30 degrees C (36 and 86 degrees F). Throw away any unused medicine after the expiration date. What should I tell my health care provider before I take this medicine? They need to know if you have any of these conditions: heart disease history of irregular heartbeat liver disease low levels of magnesium or potassium in the blood an unusual or allergic reaction to ondansetron, granisetron, other medicines, foods, dyes, or preservatives or trying to get breast-feeding What should I watch for while using this medicine? Check with your doctor or health primary care pediatrician as soon as you can if you have any sign of an allergic reaction. You have been given the following additional information: Headache, Unspecified Hypertension, To Be Confirmed Ondansetron Oral disintegrating tablet (Electronically signed by Kobe Ramos Dr. 09/14/2016 8:07)
== END 2016-09-09 16:20 | disposition home or self-care (01) ==
LOC: ED SRH 13:00
DX: R51 Headache (principal); I10 Essential (primary) hypertension; Z79.899 Other long term (current) drug therapy; Z79.52 Long term (current) use of systemic steroids

== ENCOUNTER 2016-09-20 12:01 | Outpatient (CLI) | payer OTHER ==
--- NOTE | 2016-09-23 13:22 | DIAGNOSTIC IMAGING REPORT ---
PROCEDURE: CTA HEAD WITH CONTRAST INDICATION: Headaches and visual disturbance (right ocular palsy). TECHNIQUE: 95 ml of Isovue 370 injected intravenously and axial images were obtained from the vertex through the upper neck and arterial and venous phases with 3D sagittal and coronal MIP reconstructions. COMPARISON: Comparison made MRI of the brain and internal auditory canals from [facility] on 09/13/2016. FINDINGS: ANTERIOR CIRCULATION: [place] and intracranial vessels are within normal limits. No evidence of aneurysm or vascular malformation. POSTERIOR CIRCULATION: [place] and intracranial vessels are within normal limits. No evidence of aneurysm or vascular malformation. Portions of the upper neck are seen. There are extremely tortuous bilateral cervical internal carotid arteries with looping vessels in the upper neck. Carotid bifurcation is not visualized. IMPRESSION: 1. Negative CT angiogram of the brain. No evidence of aneurysm. All CT scans at this facility use dose modulation, iterative reconstruction, and/or weight-based dosing when appropriate to reduce radiation dose to as low as reasonably achievable.
== END 2016-09-20 23:00 ==
LOC: CT SRH 12:01 → LAB SRH 12:01 → CT SRH 13:30
DX: R51 Headache (principal); H49.21 Sixth [abducent] nerve palsy, right eye
CPT/HCPCS: 90074; 91631; 92560